=== PATIENT | female | born 1985 | race Caucasian/White ===

== ENCOUNTER 2018-01-06 10:24 | Emergency (ER) | payer OTHER | END 2018-01-06 11:48 | disposition home or self-care (01) | LOC: E/R 10:24 → FTE 11:48 | DX: N64.4 Mastodynia (principal) | CPT/HCPCS: 99283; Z7502 ==

== ENCOUNTER 2019-04-29 10:45 | Emergency (ER) | payer OTHER ==
[2019-04-29] MEDS: IBUPROFEN 600 MG TAB PO (11:08)
[2019-04-29] MEDS: CEPHALEXIN 500 MG CAP PO (11:08)
== END 2019-04-29 11:31 | disposition home or self-care (01) ==
LOC: FTE 11:31
DX: K08.9 Disorder of teeth and supporting structures, unspecified (principal)
CPT/HCPCS: 99283; Z7502